=== PATIENT | female | born 1970 | race Caucasian/White ===

== ENCOUNTER 2020-01-03 07:58 | Emergency (ER) | payer BC, MEDICAID ==
[~2020-01-03] VITALS: Ht 162.6 cm; Wt 148.3 kg
[~2020-01-03 07:58] MED LIST: ALD50T PO; CETI-1 PO; CLIN-97 PO; ESCI20TA29 PO; EXEN10PE SQ; GABA-338 PO; HYDR1TAB PO; MELO7.5T12 PO; METF500T PO; METH4TAB3 PO; METH500T PO; MONT10TA21 PO; OMEG1CAP54 PO; RAMI5CAP65 PO; SIMV-42 PO; TRAM50TA2 PO
[2020-01-03 08:00] VITALS: BP 175/77
[2020-01-03] MEDS ORDERED: orphenadrine citrate 60mg/2ml inj. IM ONE (08:25)
[2020-01-03] MEDS ORDERED: triamcinolone acetonide 40mg/ml inj IM ONE (08:25)
[2020-01-03] MEDS ORDERED: METH4TAB81 PO (08:59)
[2020-01-03] MEDS ORDERED: CYCL-1 PO (08:59)
== END 2020-01-03 09:07 | disposition home or self-care (01) ==
LOC: ER 07:59
DX: M54.5 Low back pain (principal); E11.9 Type 2 diabetes mellitus without complications; Z79.2 Long term (current) use of antibiotics; Z79.899 Other long term (current) drug therapy
CPT/HCPCS: 96372; 99284; J2360; J3301

== ENCOUNTER 2021-05-26 21:59 | Emergency (ER) | payer BC ==
[~2021-05-26] VITALS: Ht 162.6 cm; Wt 137.7 kg
[~2021-05-26 21:59] MED LIST changes: +CYCL-1 PO; +METH4TAB81 PO
--- NOTE | 2021-05-26 23:00 | NUR ---
Noemi clement in ED - 05/27/21 at 0127 by LUCIUS Pt heard a "pop" on her R hip. Was weak for a while but since, pt cant walk.
[2021-05-27] MEDS ORDERED: ondansetron 4mg rapidly disintigrating tab PO ONE (00:20)
[2021-05-27] MEDS ORDERED: morphine 4 MG/ML inj SYRINge IM ONE (00:20)
[2021-05-27 01:24] VITALS: BP 163/93
--- NOTE | 2021-05-27 01:25 | NUR ---
Pt heard a "pop" on her R hip. Hip was weak already and was waiting for hip replacement sx, but since the event, pt cant walk.
[2021-05-27] MEDS ORDERED: morphine ER 15mg tablet PO ONE (03:15)
== END 2021-05-27 03:44 | disposition home or self-care (01) ==
LOC: ER 21:59
DX: M25.551 Pain in right hip (principal); G89.29 Other chronic pain; E11.9 Type 2 diabetes mellitus without complications; Z79.2 Long term (current) use of antibiotics; Z79.899 Other long term (current) drug therapy
CPT/HCPCS: 72192; 73502; 96372; 99284; J2270

== ENCOUNTER → 2021-08-18 | Emergency (ER) | payer BC ==
[~2021-08-18] VITALS: Ht 162.6 cm; Wt 159.0 kg
[2021-08-18 23:34] VITALS: BP 145/80
== END | disposition left against medical advice (07) ==
LOC: ER 23:03
DX: M25.561 Pain in right knee (principal); M25.559 Pain in unspecified hip; Z53.21 Procedure and treatment not carried out due to patient leaving prior to being seen by health care provider

== ENCOUNTER 2022-08-05 05:06 | Inpatient (IN) | payer MEDICAID ==
[2022-07-28 10:51] LABS: BASOPHILS % (AUTO) 0.9 % (0-1); EOSINOPHILS % (AUTO) 0.9 % (0-6); LYMPHOCYTES # (AUTO) 1.5 X10'3 (1.1-4.8); LYMPHOCYTES % (AUTO) 37.4 % (21-51); MEAN CORPUSCULAR HEMOGLOBIN 30.6 PG (27.0-31.0); MEAN CORPUSCULAR HGB CONC 33.9 g/dL (33.0-36.5); MEAN CORPUSCULAR VOLUME 90.4 FL (78-98); MONOCYTES # (AUTO) 0.4 X10'3 (0-0.9); MONOCYTES % (AUTO) 10.2 % (2-12); NEUTROPHILS % (AUTO) 50.6 % (42-75); PRE OP HEMATOCRIT 36.2 % (35.0-45.0); PRE OP HEMOGLOBIN 12.3 g/dL (12.0-16.0); PRE OP PLATELET COUNT 231 X10'3 (140-440); RED CELL DISTRIBUTION WIDTH 13.7 % (11.5-14.5)
[2022-07-28 11:12] LABS: ALBUMIN 3.4 G/DL (3.4-5.0); ALBUMIN/GLOBULIN RATIO 0.9 (1.1-1.5); ALKALINE PHOSPHATASE 53 IU/L (46-116); BLOOD UREA NITROGEN 19 MG/DL (7-18); BUN/CREATININE RATIO 30.2 (6.6-38.0); CALCIUM 8.8 MG/DL (8.5-10.1); CHLORIDE 105 MMOL/L (99-107); CREATININE 0.63 MG/DL (0.40-0.90); PRE OP ALT 23 U/L (30-65); PRE OP ANION GAP 5 (8-16); PRE OP AST 15 U/L (10-37); PRE OP BILIRUB, TOTAL 0.3 MG/DL (0.0-1.0); PRE OP GLUCOSE 96 MG/DL (70-104); PRE OP POTASSIUM 3.9 MMOL/L (3.4-5.1); PRE OP SODIUM 140 MMOL/L (135-145); TOTAL CARBON DIOXIDE 30.1 MMOL/L (24-32); eGFR > 90 ML/MIN
[2022-08-02 14:00] VITALS: BP 103/57
[~2022-08-05] VITALS: Ht 162.6 cm; Wt 117.7 kg
[2022-08-05] VITALS (19 sets, daily range): BP systolic 88–120; BP diastolic 45–65
[~2022-08-05 05:06] MED LIST changes: -ALD50T PO; +CALC-855 PO; -CETI-1 PO; -CLIN-97 PO; -CYCL-1 PO; -ESCI20TA29 PO; -EXEN10PE SQ; +HYDR-3964 PO; -HYDR1TAB PO; -MELO7.5T12 PO; -METF500T PO; -METH4TAB3 PO; -METH4TAB81 PO; -METH500T PO; -MONT10TA21 PO; +MULT-1085 PO; -OMEG1CAP54 PO; +RAMI2.5C54 PO; -RAMI5CAP65 PO; -SIMV-42 PO; +SITA100T15 PO; -TRAM50TA2 PO; +ringers solution, lacted 1,000 ML IV SCH
[2022-08-05] MEDS ORDERED: oxyCODONE SR 10mg (sust. release) tab -2 tabs (20mg) PO ONE (05:30)
[2022-08-05] MEDS ORDERED: celeCOXIB 100mg capsule PO ONE (05:30)
[2022-08-05] MEDS ORDERED: ceFAZolin inj. 2,000 MG in dextrose 5%-water 100 ML IV ONE (05:30)
[2022-08-05] MEDS ORDERED: tranexamic acid inj. 1,000 MG in normal saline IV soln 100ML IV ONE (05:30)
[2022-08-05] MEDS ORDERED: vancomycin 1,500 MG in NS 300ml IV soln IV ONE (05:30)
[2022-08-05] MEDS ORDERED: metoclopramide 5 mg/ml inj IV ONE (05:30)
[2022-08-05] MEDS ORDERED: famotidine 20mg tablet PO ONE (05:30)
[2022-08-05] MEDS ORDERED: acetaminophen 325mg tablet PO ONE (05:30)
[2022-08-05] MEDS ORDERED: gabapentin 300mg capsule PO ONE (05:30)
[2022-08-05] MEDS ORDERED: DEXTROSE 15 GM of carb/4 tabs (each vial/BOTTLE has 4 tablets) PO PRN ×2 (07:05)
[2022-08-05] MEDS ORDERED: MESSAGE TO PHARMACY PO ONE (07:05)
[2022-08-05] MEDS ORDERED: insulin Lispro (HumaLOG) vial - multi-dose SQ SCH (07:05)
[2022-08-05] MEDS ORDERED: glucagon, human recombinant 1mg kit SUBCUT PRN (07:05)
[2022-08-05] MEDS ORDERED: dextrose 50%-water 50ml dispensing syringe IV PRN ×2 (07:05)
[2022-08-05] MEDS ORDERED: HYDROcodone/acetaminophen 10/325mg tab PO PRN (07:05)
[2022-08-05] MEDS ORDERED: acetaminophen 325mg tablet PO PRN (07:05)
[2022-08-05] MEDS ORDERED: naloxone 0.4 mg/ml inj IV PRN (07:05)
[2022-08-05] MEDS ORDERED: diphenhydrAMINE 25mg capsule PO PRN ×2 (07:05)
[2022-08-05] MEDS ORDERED: ondansetron/PF 4mg/2ml inj IV PRN ×2 (07:05→10:15)
[2022-08-05] MEDS ORDERED: magnesium hydroxide 30ml (MOM) UD suspension PO PRN (07:05)
[2022-08-05] MEDS: potassium cl 20mEq in 1/2 NS 1,000 ML IV SCH ×2 (07:05→14:15)
[2022-08-05] MEDS ORDERED: bisacodyl 10mg suppository rectal RC PRN (07:05)
[2022-08-05] MEDS ORDERED: ascorbic acid 500mg tablet PO SCH (08:00)
[2022-08-05] MEDS ORDERED: gabapentin 300mg capsule PO SCH (08:00)
[2022-08-05] MEDS ORDERED: multivitamins, therapeutics tablet PO SCH (08:00)
[2022-08-05] MEDS ORDERED: aspirin 325mg tablet PO SCH (08:30)
[2022-08-05] MEDS ORDERED: ketorolac trometh. 30mg/ml inj. ONE (08:52)
[2022-08-05] MEDS ORDERED: ROPIVAcaine 0.5% (5mg/ml) 30ml vial ONE (08:53)
[2022-08-05] MEDS ORDERED: epiNEPHrine 1 mg/ml inj ONE (08:53)
[2022-08-05] MEDS ORDERED: cloNIDine hcl/PF 100mcg/ml inj ONE (08:53)
[2022-08-05] MEDS ORDERED: vancomycin 1,000mg inj ONE (08:53)
[2022-08-05] MEDS ORDERED: fentaNYL/PF 50MCG/1 ML 2ML syringe ONE (09:44)
--- NOTE | 2022-08-05 10:00 | NUR ---
CSM: PEDAL PULSES PRESENT AND MARKED. PATIENT DID WATCH THE VIDEO. MUPIROCIN CREAM FOR THIS PATIENT WAS NOT ORDERED. EDUCATED PATIENT ON THE USE OF THE INCENTIVE SPIROMETER AND ITS IMPORTANCE.
[2022-08-05] MEDS ORDERED: propofol inj 20 ML IV ONE ×2 (10:14)
[2022-08-05] MEDS ORDERED: midazolam 1 mg/ML 2ml injection ONE (10:14)
[2022-08-05] MEDS ORDERED: morphine 2 MG/ML inj. syringe IV PRN (10:15)
[2022-08-05] MEDS ORDERED: acetaminophen 1,000mg/100ml IV 100 ML IV PRN (10:15)
[2022-08-05] MEDS ORDERED: proCHLORperazine 10 MG/2 ml inj IV PRN (10:15)
[2022-08-05] MEDS ORDERED: ketorolac trometh. 30mg/ml inj. IV ONE (10:15)
[2022-08-05] MEDS ORDERED: morphine 4 MG/ML inj SYRINge IV PRN (10:15)
[2022-08-05] MEDS ORDERED: labetalol 20mg/4ml (5mg/ml) syringe IV PRN (10:15)
[2022-08-05] MEDS ORDERED: HYDROmorphone/PF 0.2 MG/ML SYRINGE IV PRN ×2 (10:15)
[2022-08-05] MEDS ORDERED: hydrALAZINE 20mg/ml inj. IV PRN (10:15)
[2022-08-05] MEDS ORDERED: ringers solution, lacted 1,000 ML IV SCH (10:15)
--- NOTE | 2022-08-05 11:25 | NUR ---
Received from OR via , accompanied by Anesthesiologist and report given by Anesthesiolgist. PATIENT A&OX4, DENIES PAIN, V/S WNL, NEUROVASCULAR CHECKS INTACT, T-11 SENSATION, SCD ON, IMMOBILIZER TO right LEG WITH GUANAKO DRESSING TO right HIP CDI W/ NO LEAKS DETECTED, PIV TO RUE.
--- NOTE | 2022-08-05 13:55 | NUR ---
PATIENT A&OX4, DENIES PAIN, V/S WNL, NEUROVASCULAR CHECKS INTACT, full SENSATIONs and movement now, SCD ON, IMMOBILIZER TO right LEG WITH GUANAKO DRESSING TO right HIP CDI W/ NO LEAKS DETECTED, 20g PIV TO RUE. patient taken to 358a with all belongings and hooked up to monitors in room and report given to rn who has taken over patient care.
[2022-08-05] MEDS ORDERED: tranexamic acid inj. 1,000 MG in normal saline 100ml IV soln 90 ML IV ONE (14:00)
[2022-08-05] MEDS: HYDROmorphone inj. 0.5 MG/0.5 ML DISP.SYRIN IV PRN (16:31)
[2022-08-05] MEDS: cefazolin/dext.iso 2gm/100ml 100 ML IV SCH (16:48)
--- NOTE | 2022-08-05 18:30 | NUR ---
Patient in room [facility] 358. I have received report from JOSE HASKINS and had the opportunity to ask questions and assume patient care. Addendum: 08/06/22 at 0643 by Nilda Hsu RN Amended: Links added.
[2022-08-05] MEDS: HYDROcodone/acetaminophen 10/325mg tab PO PRN (18:59)
[2022-08-05] MEDS: ascorbic acid 500mg tablet PO SCH (18:59)
--- NOTE | 2022-08-05 19:04 | NUR ---
marlys stubbs, dressing cd&I Monica in placekelsey for pain. Addendum: 08/05/22 at 1905 by Nilda Hsu RN Amended: Links added.
[2022-08-05] MEDS ORDERED: VANCOMYCIN 1,500MG inj. 1,500 MG in normal saline 500ml IV soln 300 ML IV ONE (21:00)
[2022-08-05] MEDS: HYDROmorphone 1 mg/ml syringe IV PRN (21:19)
[2022-08-05] MEDS: gabapentin 300mg capsule PO SCH (21:20)
[2022-08-05] MEDS: sennosides 8.6mg tablet PO SCH (21:20)
[2022-08-05] MEDS: insulin glargine (Lantus) pen - multi-dose SQ SCH (21:40)
[2022-08-06] VITALS: BP 92/51
[2022-08-06] MEDS: cefazolin/dext.iso 2gm/100ml 100 ML IV SCH (00:48)
[2022-08-06] MEDS: potassium cl 20mEq in 1/2 NS 1,000 ML IV SCH ×4 (00:49→23:05)
[2022-08-06] MEDS: HYDROmorphone 1 mg/ml syringe IV PRN (01:29)
[2022-08-06] MEDS: HYDROcodone/acetaminophen 10/325mg tab PO PRN ×4 (03:55→20:38)
[2022-08-06 04:00] VITALS: BP 99/48
[2022-08-06 06:00] VITALS: BP 103/51
[2022-08-06 06:57] LABS: BASOPHILS % (AUTO) 0.5 % (0-1); EOSINOPHILS % (AUTO) 0.6 % (0-6); HEMATOCRIT 32.9 % (35.0-45.0); HEMOGLOBIN 11.3 g/dl (12.0-16.0); LYMPHOCYTES # (AUTO) 1.7 X10'3 (1.1-4.8); LYMPHOCYTES % (AUTO) 30.7 % (21-51); MEAN CORPUSCULAR HEMOGLOBIN 31.2 PG (27.0-31.0); MEAN CORPUSCULAR HGB CONC 34.3 g/dL (33.0-36.5); MEAN CORPUSCULAR VOLUME 90.7 FL (78-98); MEAN PLATELET VOLUME 8.3 FL (7.4-10.4); MONOCYTES # (AUTO) 0.6 X10'3 (0-0.9); MONOCYTES % (AUTO) 10.3 % (2-12); NEUTROPHILS # (AUTO) 3.3 X10'3 (1.8-7.7); NEUTROPHILS % (AUTO) 57.9 % (42-75); PLATELET COUNT 187 X10'3 (140-440); RED BLOOD COUNT 3.63 X10'6 (4.20-5.60); RED CELL DISTRIBUTION WIDTH 13.5 % (11.5-14.5); WHITE BLOOD COUNT 5.7 X10'3 (4.5-11.0)
[2022-08-06 07:19] LABS: ANION GAP 8 (8-16); CHLORIDE 108 MMOL/L (99-107); SODIUM 140 MMOL/L (135-145); TOTAL CARBON DIOXIDE 24.1 MMOL/L (24-32)
[2022-08-06] MEDS: multivitamins, therapeutics tablet PO SCH (08:05)
[2022-08-06] MEDS: aspirin 325mg tablet PO SCH (08:05)
[2022-08-06] MEDS: ascorbic acid 500mg tablet PO SCH ×2 (08:06→20:37)
[2022-08-06] MEDS: gabapentin 300mg capsule PO SCH ×3 (08:07→20:37)
[2022-08-06 11:00] VITALS: BP 110/56
--- NOTE | 2022-08-06 11:44 | NUR ---
DM consult: Per EMR pt with T2DM, well controlled with A1c 5.3%. DM education not warranted at this time. Recommend liberalizing to regular diet. Noted pt with discharge orders per EMR. Will continue to follow. Addendum: 08/06/22 at [address] Amended: Links added.
[2022-08-06] MEDS ORDERED: albuterol 2.5 MG/3 ML nebule NEB PRN (12:05)
[2022-08-06] MEDS: HYDROmorphone inj. 0.5 MG/0.5 ML DISP.SYRIN IV PRN (12:15)
[2022-08-06] MEDS ORDERED: lisinopril 10 MG tablet PO SCH (16:25)
[2022-08-06 18:00] VITALS: BP 124/66
--- NOTE | 2022-08-06 18:20 | NUR ---
Patient in room [facility] 358. I have received report from Kendra GARCIA and had the opportunity to ask questions and assume patient care.
[2022-08-06] MEDS: celeCOXIB 100mg capsule PO SCH (20:37)
[2022-08-06] MEDS: sennosides 8.6mg tablet PO SCH (20:37)
[2022-08-06] MEDS: insulin glargine (Lantus) pen - multi-dose SQ SCH (21:00)
[2022-08-06 22:00] VITALS: BP 98/50
[2022-08-07] MEDS: HYDROcodone/acetaminophen 10/325mg tab PO PRN ×3 (01:34→09:41)
--- NOTE | 2022-08-07 04:12 | NUR ---
MUSIC LIBRARIAN documentation: I have reviewed and agree with all interventions, assessments performed and documented by Kenya NAM.
[2022-08-07 06:00] VITALS: BP 112/57
--- NOTE | 2022-08-07 06:27 | NUR ---
Problems reprioritized. Patient report given, questions answered & plan of care reviewed with Juanita GARCIA and Kalli NAM.
[2022-08-07 06:32] LABS: BASOPHILS % (AUTO) 0.5 % (0-1); EOSINOPHILS % (AUTO) 0.8 % (0-6); HEMATOCRIT 30.4 % (35.0-45.0); HEMOGLOBIN 10.5 g/dl (12.0-16.0); LYMPHOCYTES # (AUTO) 1.7 X10'3 (1.1-4.8); LYMPHOCYTES % (AUTO) 29.3 % (21-51); MEAN CORPUSCULAR HGB CONC 34.8 g/dL (33.0-36.5); MEAN CORPUSCULAR VOLUME 89.3 FL (78-98); MEAN PLATELET VOLUME 7.9 FL (7.4-10.4); MONOCYTES # (AUTO) 0.7 X10'3 (0-0.9); MONOCYTES % (AUTO) 12.5 % (2-12); NEUTROPHILS # (AUTO) 3.3 X10'3 (1.8-7.7); NEUTROPHILS % (AUTO) 56.9 % (42-75); PLATELET COUNT 191 X10'3 (140-440); RED CELL DISTRIBUTION WIDTH 13.4 % (11.5-14.5); WHITE BLOOD COUNT 5.8 X10'3 (4.5-11.0)
--- NOTE | 2022-08-07 06:42 | NUR ---
Patient in room [facility] 358. I have received report from Beba and had the opportunity to ask questions and assume patient care.
[2022-08-07] MEDS: celeCOXIB 100mg capsule PO SCH (08:06)
[2022-08-07] MEDS: ascorbic acid 500mg tablet PO SCH (08:07)
[2022-08-07] MEDS: aspirin 325mg tablet PO SCH (08:07)
[2022-08-07] MEDS: gabapentin 300mg capsule PO SCH (08:07)
[2022-08-07] MEDS: multivitamins, therapeutics tablet PO SCH (08:07)
[2022-08-07 12:00] VITALS: BP 90/56
--- NOTE | 2022-08-07 12:15 | NUR ---
Patient discharged today into the care of spouse. IV D/C'd and discharge instructions were discussed with patient. Patient stated that Dr. Villafana sent a tramadol rx to her pharmacy but was unable to pick it up due to pharmacy rejecting it. I called pharmacy and spoke with pharmacist Maria Elena and she was able to push the rx through. Patient is aware of picking up rx from pharmacy. Patient dressed herself and gathered all belongings. Patient was stable and alert/orientated when wheeled down stairs. Patient helped into privative vehicle.
--- NOTE | 2022-08-07 12:24 | NUR ---
SHANK CUTTER documentation: I have reviewed and agree with all interventions, assessments performed and documented by CYRIL Mahan.
== END 2022-08-07 12:28 | disposition home or self-care (01) | DRG 324 ==
LOC: PAS IN 06:23 → SUR 3N 14:00
PROVIDERS: ADMIT Orthopaedic Surgery; ATTEND Orthopaedic Surgery
PROC: 0SR906Z Replacement of Right Hip Joint with Oxidized Zirconium on Polyethylene Synthetic Substitute, Open Approach (ICD-10-PCS; principal; 2022-08-05 09:38)
DX: M16.11 Unilateral primary osteoarthritis, right hip (principal); Z79.82 Long term (current) use of aspirin; Z79.84 Long term (current) use of oral hypoglycemic drugs
CPT/HCPCS: 36415; 72170; 80051; 80053; 82948; 83036; 85025; 86885; 86900; 86901; 87081; 94760; 97110; 97116; 97162; 97530; A4615; A4618; A7000; C1776; G0378; J0171; J0690; J0735; J1170; J1815; J1885; J2250; J2704; J2765; J2795; J3010; J3370; J3480; J3490; J7040; J7060; J7120

== ENCOUNTER 2023-01-26 09:51 | Day surgery (SDC) | payer MEDICAID ==
[2023-01-26] VITALS (8 sets, daily range): BP systolic 119–159; BP diastolic 63–99
[~2023-01-26] VITALS: Ht 162.6 cm; Wt 122.5 kg
[~2023-01-26 09:51] MED LIST changes: -CALC-855 PO; -GABA-338 PO; +GABA600T13 PO; +METF-1203 PO; -MULT-1085 PO; -RAMI2.5C54 PO; -SITA100T15 PO; +ceFAZolin inj. 3,000 MG in normal saline 100ml IV soln 100 ML IV ONE; +famotidine 20mg tablet PO ONE
[2023-01-26 12:19] LABS: ALANINE AMINOTRANSFERASE 22 U/L (12-78); ALBUMIN 3.5 G/DL (3.4-5.0); ALBUMIN/GLOBULIN RATIO 0.9 (1.1-1.5); ALKALINE PHOSPHATASE 47 IU/L (46-116); ANION GAP 9 (8-16); ASPARTATE AMINO TRANSFERASE 27 U/L (10-37); BILIRUBIN,TOTAL 0.4 MG/DL (0.1-1.0); BLOOD UREA NITROGEN 17 MG/DL (7-18); BUN/CREATININE RATIO 27.9 (10.0-20.0); CALCIUM 8.9 MG/DL (8.5-10.1); CHLORIDE 105 MMOL/L (99-107); CREATININE 0.61 MG/DL (0.40-0.90); GLUCOSE 98 MG/DL (70-104); POTASSIUM 4.3 MMOL/L (3.5-5.1); SODIUM 140 MMOL/L (135-145); TOTAL CARBON DIOXIDE 25.9 MMOL/L (24-32); TOTAL PROTEIN 7.3 G/DL (6.4-8.2); eGFR > 90 ML/MIN
[2023-01-26 12:21] LABS: BASOPHILS % (AUTO) 1.1 % (0-1); EOSINOPHILS # (AUTO) 0.1 X10'3 (0-0.9); EOSINOPHILS % (AUTO) 1.4 % (0-6); HEMATOCRIT 33.7 % (35.0-45.0); HEMOGLOBIN 11.2 g/dl (12.0-16.0); LYMPHOCYTES # (AUTO) 1.7 X10'3 (1.1-4.8); LYMPHOCYTES % (AUTO) 37.7 % (21-51); MEAN CORPUSCULAR HEMOGLOBIN 27.8 PG (27.0-31.0); MEAN CORPUSCULAR HGB CONC 33.2 g/dL (33.0-36.5); MEAN PLATELET VOLUME 7.9 FL (7.4-10.4); MONOCYTES # (AUTO) 0.4 X10'3 (0-0.9); MONOCYTES % (AUTO) 9.9 % (2-12); NEUTROPHILS # (AUTO) 2.2 X10'3 (1.8-7.7); NEUTROPHILS % (AUTO) 49.9 % (42-75); PLATELET COUNT 248 X10'3 (140-440); RED BLOOD COUNT 4.02 X10'6 (4.20-5.60); RED CELL DISTRIBUTION WIDTH 12.6 % (11.5-14.5); WHITE BLOOD COUNT 4.4 X10'3 (4.5-11.0)
[2023-01-26] MEDS ORDERED: BUPIVAcaine/PF 2.5 mg/ml (0.25%) 30ml vial ONE (13:09)
[2023-01-26] MEDS ORDERED: bacitracin 15gm ointment TP ONE (13:09)
[2023-01-26] MEDS ORDERED: midazolam 1 mg/ML 2ml injection ONE (13:28)
[2023-01-26] MEDS ORDERED: fentaNYL/PF 50MCG/1 ML 2ML syringe ONE (13:28)
[2023-01-26] MEDS ORDERED: propofol inj 20 ML IV ONE (13:55)
--- NOTE | 2023-01-26 13:58 | NUR ---
Received from OR via [facility], accompanied by Anesthesiologist and report given by ABBI Anesthesiologist. PATIENT WAKING UP, DENIES PAIN, V/S WNL, SCD ON, 20G TO LEFT AC, RIGHT FOOT JANELL WRAP DRESSING C/D/I. Addendum: 01/26/23 at 1459 by Ronnie Burciaga RN Amended: Links added.
[2023-01-26] MEDS ORDERED: morphine 4 MG/ML inj SYRINge IV PRN (14:20)
[2023-01-26] MEDS ORDERED: morphine 2 MG/ML inj. syringe IV PRN (14:20)
[2023-01-26] MEDS ORDERED: meperidine/PF 25mg/ml syringe IV PRN ×3 (14:20)
[2023-01-26] MEDS ORDERED: proCHLORperazine 10 MG/2 ml inj IV PRN (14:20)
[2023-01-26] MEDS ORDERED: ringers solution, lacted 1,000 ML IV SCH (14:20)
[2023-01-26] MEDS ORDERED: ondansetron/PF 4mg/2ml inj IV PRN (14:20)
--- NOTE | 2023-01-26 15:08 | NUR ---
ALL DISCHARGE CRITERIA HAS BEEN MET. VSS, PAIN AT A TOLERABLE LEVEL, ABLE TO SAFELY AMBULATE WITH SURGICAL BOOTS AND TRANSFER SELF. IV TAKEN OUT WITHOUT ANY COMPLICATIONS. ALL DISCHARGE INSTRUCTIONS COVERED WITH PATIENT AND ALL QUESTIONS ANSWERED. PATIENT TAKEN OUT VIA WHEELCHAIR WITH ALL BELONGINGS TO PERSONAL VEHICLE WHERE FAMILY DROVE PATIENT HOME. Addendum: 01/26/23 at 1516 by Ronnie Burciaga RN Amended: Links added.
--- NOTE | 2023-01-26 15:08 | NUR ---
ALL DISCHARGE CRITERIA HAS BEEN MET. VSS, PAIN AT A TOLERABLE LEVEL, ABLE TO SAFELY AMBULATE AND TRANSFER SELF. IV TAKEN OUT WITHOUT ANY COMPLICATIONS. ALL DISCHARGE INSTRUCTIONS COVERED WITH PATIENT AND ALL QUESTIONS ANSWERED. PATIENT TAKEN OUT VIA WHEELCHAIR WITH ALL BELONGINGS TO PERSONAL VEHICLE WHERE FAMILY DROVE PATIENT HOME.
== END 2023-01-26 15:08 | disposition home or self-care (01) ==
LOC: PRE-OP 09:51
PROVIDERS: ATTEND Podiatrist Foot & Ankle Surgery
DX: M79.5 Residual foreign body in soft tissue (principal); M16.0 Bilateral primary osteoarthritis of hip; G47.30 Sleep apnea, unspecified; J45.909 Unspecified asthma, uncomplicated; Z98.890 Other specified postprocedural states; E11.9 Type 2 diabetes mellitus without complications; Z98.51 Tubal ligation status; Z79.899 Other long term (current) drug therapy; W45.8XXA Other foreign body or object entering through skin, initial encounter; Y93.89 Activity, other specified; Y92.89 Other specified places as the place of occurrence of the external cause; Y99.8 Other external cause status; Z96.641 Presence of right artificial hip joint; Z98.84 Bariatric surgery status
CPT/HCPCS: 28192; 36415; 80053; 82948; 85025; A6222; J0690; J2250; J2704; J3010; J3490; J7030; J7120; Z7506; Z7512; A4618; A6449; A7000

== ENCOUNTER 2023-03-02 06:28 | Inpatient (IN) | payer MEDICAID ==
[2023-02-23 14:50] LABS: BASOPHILS # (AUTO) 0.1 X10'3 (0-0.2); EOSINOPHILS # (AUTO) 0.1 X10'3 (0-0.9); EOSINOPHILS % (AUTO) 2.3 % (0-6); LYMPHOCYTES % (AUTO) 37.3 % (21-51); MEAN CORPUSCULAR HEMOGLOBIN 27.3 PG (27.0-31.0); MEAN CORPUSCULAR HGB CONC 33.1 g/dL (33.0-36.5); MEAN CORPUSCULAR VOLUME 82.3 FL (78-98); MEAN PLATELET VOLUME 7.9 FL (7.4-10.4); MONOCYTES # (AUTO) 0.5 X10'3 (0-0.9); MONOCYTES % (AUTO) 9.9 % (2-12); NEUTROPHILS # (AUTO) 2.7 X10'3 (1.8-7.7); NEUTROPHILS % (AUTO) 49.5 % (42-75); PRE OP HEMATOCRIT 35.4 % (35.0-45.0); PRE OP HEMOGLOBIN 11.7 g/dL (12.0-16.0); PRE OP PLATELET COUNT 257 X10'3 (140-440); RED CELL DISTRIBUTION WIDTH 13.3 % (11.5-14.5)
[2023-02-23 15:08] LABS: ALBUMIN 3.8 G/DL (3.4-5.0); ALKALINE PHOSPHATASE 59 IU/L (46-116); BLOOD UREA NITROGEN 14 MG/DL (7-18); BUN/CREATININE RATIO 18.2 (10.0-20.0); CALCIUM 8.8 MG/DL (8.5-10.1); CHLORIDE 104 MMOL/L (99-107); CREATININE 0.77 MG/DL (0.40-0.90); PRE OP ALT 29 U/L (30-65); PRE OP ANION GAP 9 (8-16); PRE OP AST 24 U/L (10-37); PRE OP BILIRUB, TOTAL 0.2 MG/DL (0.0-1.0); PRE OP GLUCOSE 114 MG/DL (70-104); PRE OP POTASSIUM 4.1 MMOL/L (3.4-5.1); PRE OP SODIUM 141 MMOL/L (135-145); TOTAL CARBON DIOXIDE 28.3 MMOL/L (24-32); TOTAL PROTEIN 7.6 G/DL (6.4-8.2); eGFR 79 ML/MIN
[2023-03-02] VITALS (27 sets, daily range): BP systolic 90–148; BP diastolic 43–107
[~2023-03-02] VITALS: Ht 162.6 cm; Wt 125.6 kg
[~2023-03-02 06:28] MED LIST changes: +ASCO500C17 PO; +CALC-995 PO; +MULT-1085 PO; +SEMA0.25 SQ; +acetaminophen 325mg tablet PO ONE; +celeCOXIB 100mg capsule PO ONE; +gabapentin 300mg capsule PO ONE; +metoclopramide 5 mg/ml inj IV ONE; +oxyCODONE SR 10mg (sust. release) tab -2 tabs (20mg) PO ONE; +tranexamic acid inj. 1,000 MG in normal saline IV soln 100ML IV ONE; +vancomycin 1,500 MG in NS 300ml IV soln IV ONE
[2023-03-02] MEDS ORDERED: HYDROmorphone inj. 0.5 MG/0.5 ML DISP.SYRIN IV PRN (06:45)
[2023-03-02] MEDS ORDERED: bisacodyl 10mg suppository rectal RC PRN (06:45)
[2023-03-02] MEDS ORDERED: dextrose 50%-water 50ml dispensing syringe IV PRN ×2 (06:45)
[2023-03-02] MEDS ORDERED: oxyCODONE IR 5mg (immed. release) tablet PO PRN (06:45)
[2023-03-02] MEDS ORDERED: glucagon, human recombinant 1mg kit SUBCUT PRN (06:45)
[2023-03-02] MEDS ORDERED: acetaminophen 325mg tablet PO PRN (06:45)
[2023-03-02] MEDS ORDERED: naloxone 0.4 mg/ml inj IV PRN (06:45)
[2023-03-02] MEDS ORDERED: ondansetron/PF 4mg/2ml inj IV PRN ×2 (06:45→10:05)
[2023-03-02] MEDS ORDERED: DEXTROSE 15 GM of carb/4 tabs (each vial/BOTTLE has 4 tablets) PO PRN ×2 (06:45)
[2023-03-02] MEDS ORDERED: MESSAGE TO PHARMACY PO ONE (06:45)
[2023-03-02] MEDS ORDERED: diphenhydrAMINE 25mg capsule PO PRN ×2 (06:45)
[2023-03-02] MEDS ORDERED: insulin Lispro (HumaLOG) vial - multi-dose SQ SCH (06:45)
[2023-03-02] MEDS ORDERED: HYDROmorphone 1 mg/ml syringe IV PRN (06:45)
[2023-03-02] MEDS ORDERED: magnesium hydroxide 30ml (MOM) UD suspension PO PRN (06:45)
[2023-03-02] MEDS ORDERED: cefazolin 2gm/D5W 100mL 100 ML IV SCH (08:00)
--- NOTE | 2023-03-02 08:00 | NUR ---
PEDAL PULSES MARKED CSM INTACT PATIENT HAS WATCHED VIDEO, NO OINTMENT ORDERED
[2023-03-02] MEDS ORDERED: fentaNYL/PF 50MCG/1 ML 2ML syringe ONE (09:55)
[2023-03-02] MEDS ORDERED: MIDAZolam 1 MG/ML 5ML VIAL ONE (09:56)
[2023-03-02] MEDS ORDERED: morphine 2 MG/ML inj. syringe IV PRN (10:05)
[2023-03-02] MEDS ORDERED: ringers solution, lacted 1,000 ML IV SCH (10:05)
[2023-03-02] MEDS ORDERED: morphine 4 MG/ML inj SYRINge IV PRN (10:05)
[2023-03-02] MEDS ORDERED: meperidine/PF 25mg/ml syringe IV PRN ×3 (10:05)
[2023-03-02] MEDS ORDERED: proCHLORperazine 10 MG/2 ml inj IV PRN (10:05)
[2023-03-02] MEDS ORDERED: epiNEPHrine 1 mg/ml inj ONE (10:14)
[2023-03-02] MEDS ORDERED: vancomycin 1,000mg inj ONE (10:14)
[2023-03-02] MEDS ORDERED: ketorolac trometh. 30mg/ml inj. ONE (10:14)
[2023-03-02] MEDS ORDERED: cloNIDine hcl/PF 100mcg/ml inj ONE (10:14)
[2023-03-02] MEDS ORDERED: ROPIVAcaine 0.5% (5mg/ml) 30ml vial ONE (10:15)
[2023-03-02] MEDS ORDERED: diphenhydrAMINE 50 mg/ml inj ONE (11:09)
[2023-03-02] MEDS ORDERED: LIDOcaine 1%/PF 5ML 10 MG/ML VIAL ONE (11:09)
[2023-03-02] MEDS ORDERED: propofol inj 20 ML IV ONE (11:09)
[2023-03-02] MEDS ORDERED: epiNEPHrine 1 MG/ML 1 ml ampule **BRONCH ONLY SQ ONE (11:11)
[2023-03-02] MEDS ORDERED: cloNIDine hcl/PF 100mcg/ml inj EP ONE (11:11)
[2023-03-02] MEDS ORDERED: ketorolac trometh. 30mg/ml inj. IV ONE (11:11)
[2023-03-02] MEDS ORDERED: ROPIVAcaine 0.5% (5mg/ml) 30ml vial IJ ONE (11:11)
--- NOTE | 2023-03-02 11:53 | NUR ---
Received from OR via HOSPITAL BED TO RR, accompanied by Anesthesiologist and report given by Anesthesiolgist. PT PRESENTS WITH 20G RIGHT AC, LEFT KNEE BRACE WITH GUANAKO DRESSSING AND POWDER PACK, SPO2 94% RA, ;R RUNNING AT 100MLS/HR, VSS. Addendum: 03/02/23 at 1257 by Jeanie Gomez RN, RN Amended: Links added.
[2023-03-02 12:23] LABS: ISTAT ANION GAP 10 (8-12); ISTAT BUN 15 mg/dL (7-18); ISTAT CL 101 mmol/L (99-107); ISTAT CREATININE 0.6 mg/dL (0.6-1.1); ISTAT GLUCOSE 98 mg/dL (70-104); ISTAT HGB 10.5 g/dl (12.0-16.0); ISTAT Hct 31 %PCV (35-45); ISTAT IONIZED CALCIUM 1.23 mmol/L (1.03-1.32); ISTAT NA 140 mmol/L (135-145); ISTAT TOTAL CO2 29 mmol/L (24-32); ISTAT eGFR > 90 ML/MIN
[2023-03-02] MEDS ORDERED: ceFAZolin/D5W- 1GM premix 50 ML IV SCH (14:00)
[2023-03-02] MEDS ORDERED: tranexamic acid inj. 1,000 MG in normal saline 100ml IV soln 90 ML IV ONE (14:00)
--- NOTE | 2023-03-02 14:13 | NUR ---
Report called to receiving nurse SHAHIDA GARCIA. Transferred via [facility] BED TO ROOM 4009C. BED IN LOW LOCKED POSITION WITH CALL LIGHT IN REACH. Belongings TAAKEN TO THE ROOM BY SISTER. Special Issues communicated to receiving nurse. Addendum: 03/02/23 at 1421 by Jeanie Gomez RN RN Amended: Links added.
[2023-03-02] MEDS: acetaminophen 325mg tablet PO SCH ×2 (15:18→20:37)
[2023-03-02] MEDS: oxyCODONE IR 5mg (immed. release) tablet PO PRN ×2 (15:18→20:36)
--- NOTE | 2023-03-02 17:02 | NUR ---
Ancef due at 1600. Paged Pharmacy and called asking for the medication. Medication still not available on the floor. Pharmacy states they do not have enough staff to bring up the medication.
[2023-03-02] MEDS: potassium cl 20mEq in 1/2 NS 1,000 ML IV SCH ×2 (17:34→20:39)
[2023-03-02] MEDS: ceFAZolin inj. 3,000 MG in normal saline 100ml IV soln 100 ML IV SCH (17:35)
--- NOTE | 2023-03-02 18:38 | NUR ---
Problems reprioritized. Patient report given, questions answered & plan of care reviewed with JOSE Bearden.
--- NOTE | 2023-03-02 19:04 | NUR ---
Patient in room [facility]TH[facility] 4009. I have received report from JOSE Gaston and had the opportunity to ask questions and assume patient care.
[2023-03-02] MEDS ORDERED: vancomycin inj 1,750 MG in normal saline 500ml IV soln 350 ML IV ONE (20:00)
[2023-03-02] MEDS: gabapentin 400mg capsule PO SCH (20:34)
[2023-03-02] MEDS ORDERED: insulin glargine (Lantus) pen - multi-dose SQ SCH (21:00)
[2023-03-02] MEDS ORDERED: sennosides 8.6mg tablet PO SCH (21:00)
[2023-03-03] VITALS: BP 116/61
--- NOTE | 2023-03-03 | NUR ---
Sent Page to pharmacy "In need of Ancef for Pt. Non located in the omni, nor Pt specific. Thank you"
[2023-03-03] MEDS: ceFAZolin inj. 3,000 MG in normal saline 100ml IV soln 100 ML IV SCH (00:28)
[2023-03-03 02:00] VITALS: BP 120/66
[2023-03-03] MEDS: acetaminophen 325mg tablet PO SCH ×2 (02:24→07:17)
[2023-03-03] MEDS: oxyCODONE IR 5mg (immed. release) tablet PO PRN ×3 (02:45→12:16)
--- NOTE | 2023-03-03 04:35 | NUR ---
CYRIL documentation: I have reviewed and agree with all interventions, assessments performed and documented by CYRIL Bearden. pulses intact, dressing CDI. knee immobilizer on, powder packs changed frequently.
[2023-03-03] MEDS: potassium cl 20mEq in 1/2 NS 1,000 ML IV SCH (05:43)
[2023-03-03 06:00] VITALS: BP 94/53
--- NOTE | 2023-03-03 06:08 | NUR ---
Problems reprioritized. Patient report given, questions answered & plan of care reviewed with JOSE Gaston.
--- NOTE | 2023-03-03 06:10 | NUR ---
Patient in room ORTHO 4009. I have received report from CYRIL Bearden and had the opportunity to ask questions and assume patient care.
[2023-03-03] MEDS: gabapentin 400mg capsule PO SCH (07:16)
[2023-03-03 07:20] LABS: BASOPHILS % (AUTO) 0.8 % (0-1); EOSINOPHILS # (AUTO) 0.1 X10'3 (0-0.9); HEMATOCRIT 27.9 % (35.0-45.0); HEMOGLOBIN 9.2 g/dl (12.0-16.0); LYMPHOCYTES # (AUTO) 1.2 X10'3 (1.1-4.8); LYMPHOCYTES % (AUTO) 30.7 % (21-51); MEAN CORPUSCULAR HEMOGLOBIN 27.2 PG (27.0-31.0); MEAN CORPUSCULAR VOLUME 82.4 FL (78-98); MEAN PLATELET VOLUME 8.2 FL (7.4-10.4); MONOCYTES # (AUTO) 0.4 X10'3 (0-0.9); MONOCYTES % (AUTO) 10.4 % (2-12); NEUTROPHILS # (AUTO) 2.3 X10'3 (1.8-7.7); NEUTROPHILS % (AUTO) 56.1 % (42-75); PLATELET COUNT 181 X10'3 (140-440); RED BLOOD COUNT 3.39 X10'6 (4.20-5.60); RED CELL DISTRIBUTION WIDTH 13.7 % (11.5-14.5)
[2023-03-03 07:32] LABS: ANION GAP 6 (8-16); CHLORIDE 105 MMOL/L (99-107); POTASSIUM 4.4 MMOL/L (3.5-5.1); SODIUM 139 MMOL/L (135-145); TOTAL CARBON DIOXIDE 28.3 MMOL/L (24-32)
[2023-03-03] MEDS ORDERED: cefazolin 2gm/D5W 100mL 100 ML IV SCH (08:00)
[2023-03-03] MEDS ORDERED: multivitamins, therapeutics tablet PO SCH (08:00)
[2023-03-03] MEDS ORDERED: ascorbic acid 500mg tablet PO SCH (08:00)
[2023-03-03] MEDS ORDERED: aspirin 325mg tablet PO SCH (08:30)
[2023-03-03 10:00] VITALS: BP 103/52
--- NOTE | 2023-03-03 11:00 | NUR ---
Per EMR pt s/p left [facility], discharging at this time. Written protein education with ONS coupons and RD contact information mailed to patient's home address found in EMR. Will remain available. Addendum: 03/03/23 at [address] Amended: Links added.
--- NOTE | 2023-03-03 13:34 | NUR ---
Patient was discharged at 1230 with instructions verbalizing understanding of instructions, in wheelchair accompanied by nursing staff and sister going home via private vehicle. All lines and tubes including PIV with cannula intact have been removed. Education has been provided at beside (discharge and diabetic) and all questions have been answered. Patient already has a follow up appointment with Dr. Villafana. Patient is stable and appropriate for discharge.
[2023-03-03] MEDS ORDERED: celeCOXIB 100mg capsule PO SCH (20:00)
== END 2023-03-03 12:30 | disposition home or self-care (01) | DRG 324 ==
LOC: PAS 06:28 → ORTHO 4S 06:45 → EDSTATUS 07:30
PROVIDERS: ADMIT Orthopaedic Surgery; ATTEND Orthopaedic Surgery
PROC: 0SRB06Z Replacement of Left Hip Joint with Oxidized Zirconium on Polyethylene Synthetic Substitute, Open Approach (ICD-10-PCS; principal; 2023-03-02 10:08)
DX: M16.12 Unilateral primary osteoarthritis, left hip (principal); Z79.82 Long term (current) use of aspirin
CPT/HCPCS: 36415; 71045; 72170; 80047; 80051; 80053; 82948; 83036; 85025; 86885; 86900; 86901; 87081; 97116; 97161; 97530; A7000; C1776; G0378; J0171; J0690; J0735; J1170; J1200; J1815; J1885; J2250; J2704; J2765; J2795; J3010; J3370; J3480; J3490; J7040; J7120

== ENCOUNTER 2023-03-18 17:01 | Emergency (ER) | payer MEDICAID ==
[~2023-03-18] VITALS: Ht 162.6 cm; Wt 125.9 kg
[~2023-03-18 17:01] MED LIST changes: -acetaminophen 325mg tablet PO ONE; -ceFAZolin inj. 3,000 MG in normal saline 100ml IV soln 100 ML IV ONE; -celeCOXIB 100mg capsule PO ONE; -famotidine 20mg tablet PO ONE; -gabapentin 300mg capsule PO ONE; -metoclopramide 5 mg/ml inj IV ONE; -oxyCODONE SR 10mg (sust. release) tab -2 tabs (20mg) PO ONE; -ringers solution, lacted 1,000 ML IV SCH; -tranexamic acid inj. 1,000 MG in normal saline IV soln 100ML IV ONE; -vancomycin 1,500 MG in NS 300ml IV soln IV ONE
[2023-03-18 17:16] VITALS: BP 143/90
[2023-03-18] MEDS ORDERED: morphine 4 MG/ML inj SYRINge IV ONE (19:05)
[2023-03-18 19:21] LABS: BASOPHILS # (AUTO) 0.1 X10'3 (0-0.2); BASOPHILS % (AUTO) 1.1 % (0-1); EOSINOPHILS # (AUTO) 0.2 X10'3 (0-0.9); EOSINOPHILS % (AUTO) 2.3 % (0-6); HEMATOCRIT 33.9 % (35.0-45.0); HEMOGLOBIN 10.9 g/dl (12.0-16.0); LYMPHOCYTES # (AUTO) 2.1 X10'3 (1.1-4.8); MEAN CORPUSCULAR HGB CONC 32.1 g/dL (33.0-36.5); MEAN PLATELET VOLUME 7.9 FL (7.4-10.4); MONOCYTES # (AUTO) 0.6 X10'3 (0-0.9); MONOCYTES % (AUTO) 8.1 % (2-12); NEUTROPHILS # (AUTO) 4.4 X10'3 (1.8-7.7); NEUTROPHILS % (AUTO) 59.5 % (42-75); PLATELET COUNT 474 X10'3 (140-440); RED BLOOD COUNT 4.18 X10'6 (4.20-5.60); RED CELL DISTRIBUTION WIDTH 14.3 % (11.5-14.5); WHITE BLOOD COUNT 7.4 X10'3 (4.5-11.0)
[2023-03-18 19:36] LABS: ALANINE AMINOTRANSFERASE 22 U/L (12-78); ALBUMIN 4.2 G/DL (3.4-5.0); ALBUMIN/GLOBULIN RATIO 1.1 (1.1-1.5); ALKALINE PHOSPHATASE 78 IU/L (46-116); ANION GAP 8 (8-16); ASPARTATE AMINO TRANSFERASE 22 U/L (10-37); BILIRUBIN,TOTAL 0.3 MG/DL (0.1-1.0); BLOOD UREA NITROGEN 26 MG/DL (7-18); CALCIUM 9.5 MG/DL (8.5-10.1); CHLORIDE 102 MMOL/L (99-107); CREATININE 0.84 MG/DL (0.40-0.90); GLUCOSE 110 MG/DL (70-104); POTASSIUM 4.3 MMOL/L (3.5-5.1); SODIUM 137 MMOL/L (135-145); TOTAL CARBON DIOXIDE 27.2 MMOL/L (24-32); TOTAL PROTEIN 8.1 G/DL (6.4-8.2); eGFR 71 ML/MIN
[2023-03-18] MEDS ORDERED: iohexol 300mg/ml 100ml inj. ONE (20:19)
== END 2023-03-18 22:26 | disposition home or self-care (01) ==
LOC: ER 17:02
DX: L76.32 Postprocedural hematoma of skin and subcutaneous tissue following other procedure (principal); M25.552 Pain in left hip; E11.9 Type 2 diabetes mellitus without complications; G89.29 Other chronic pain; Z79.899 Other long term (current) drug therapy
CPT/HCPCS: 36415; 73502; 73701; 80053; 84145; 85025; 96374; 99285; J2270; J3490; Q9967

== ENCOUNTER 2024-06-13 07:56 | Day surgery (SDC) | payer MEDICAID ==
[~2024-06-13] VITALS: Ht 162.6 cm; Wt 122.2 kg
[~2024-06-13 07:56] MED LIST changes: -ASCO500C17 PO; +CHOL500049 PO; -METF-1203 PO
[2024-06-13 08:21] VITALS: BP 155/84; PULSE 68; RESP 19
[2024-06-13] MEDS ORDERED: MIDAZolam 1 MG/ML 5ML VIAL ONE (09:32)
[2024-06-13] MEDS ORDERED: fentaNYL/PF 50MCG/1 ML 2ML syringe ONE (09:32)
[2024-06-13] MEDS ORDERED: propofol inj 20 ML IV ONE (09:33)
[2024-06-13] MEDS ORDERED: LIDOcaine 2% (20mg/ml) 5ml vial ONE (09:33)
[2024-06-13] MEDS ORDERED: simethicone 40mg/0.6ml oral drops 30ml ONE (09:35)
[2024-06-13 09:59] VITALS: BP 137/83; PULSE 71; RESP 18; O2SAT 100
[2024-06-13 10:10] VITALS: BP 144/84; PULSE 66; RESP 19; O2SAT 100
[2024-06-13 10:20] VITALS: BP 145/84; PULSE 61; RESP 16; O2SAT 97
[2024-06-13 10:30] VITALS: BP 161/84; PULSE 58; RESP 17; O2SAT 98
== END 2024-06-13 10:37 | disposition home or self-care (01) ==
LOC: GI LAB 07:56
PROVIDERS: ATTEND Internal Medicine Gastroenterology
DX: Z12.11 Encounter for screening for malignant neoplasm of colon (principal); D12.3 Benign neoplasm of transverse colon; K57.30 Diverticulosis of large intestine without perforation or abscess without bleeding; I10 Essential (primary) hypertension; E11.9 Type 2 diabetes mellitus without complications; E66.9 Obesity, unspecified; J45.909 Unspecified asthma, uncomplicated; G47.30 Sleep apnea, unspecified; Z86.010 Personal history of colon polyps; Z68.42 Body mass index [BMI] 45.0-49.9, adult
CPT/HCPCS: 45385; J2250; J2704; J3010; J3490; J7030; Z7512; A4620; C1889

== ENCOUNTER 2024-06-28 21:19 | Emergency (ER) | payer MEDICAID ==
[~2024-06-28] VITALS: Ht 162.6 cm; Wt 122.6 kg
[2024-06-28] MEDS: famotidine 20mg tablet PO ONE (22:05)
[2024-06-28] MEDS: diphenhydrAMINE 25mg capsule PO ONE (22:05)
[2024-06-28] MEDS ORDERED: HYDR-3717 PO (22:08)
[2024-06-28] MEDS ORDERED: TRIA15CR61 TOP (22:08)
[2024-06-28] MEDS: dexamethasone sod phosphate 10mg/ml inj IM STA (22:08)
[2024-06-28] MEDS: ondansetron 4mg rapidly disintigrating tab PO ONE (22:11)
[2024-06-28 22:15] VITALS: BP 167/96; PULSE 81; RESP 16; TEMP 97.8; O2SAT 98
== END 2024-06-28 22:16 | disposition home or self-care (01) ==
LOC: ER 21:19
DX: T78.49XA Other allergy, initial encounter (principal); E11.9 Type 2 diabetes mellitus without complications; G89.29 Other chronic pain; Z79.899 Other long term (current) drug therapy; X58.XXXA Exposure to other specified factors, initial encounter
CPT/HCPCS: 96372; 99284; J1100; Q0163

== ENCOUNTER 2024-12-28 21:55 | Emergency (ER) | payer MEDICAID ==
[~2024-12-28] VITALS: Ht 162.6 cm; Wt 120.5 kg
[~2024-12-28 21:55] MED LIST changes: +GABA-1405 PO; -GABA600T13 PO
[2024-12-28] MEDS ORDERED: iohexol 350MG/ML 100ml bottle IV ONE (22:24)
[2024-12-28 23:17] LABS: BASOPHILS % (AUTO) 0.9 % (0-1); EOSINOPHILS # (AUTO) 0.1 X10'3 (0-0.9); EOSINOPHILS % (AUTO) 1.5 % (0-6); HEMATOCRIT 38.5 % (35.0-45.0); HEMOGLOBIN 12.9 g/dl (12.0-16.0); LYMPHOCYTES # (AUTO) 1.6 X10'3 (1.1-4.8); LYMPHOCYTES % (AUTO) 30.7 % (21-51); MEAN CORPUSCULAR HEMOGLOBIN 28.3 PG (27.0-31.0); MEAN CORPUSCULAR HGB CONC 33.4 g/dL (33.0-36.5); MEAN CORPUSCULAR VOLUME 84.7 FL (78-98); MEAN PLATELET VOLUME 7.2 FL (7.4-10.4); MONOCYTES # (AUTO) 0.5 X10'3 (0-0.9); MONOCYTES % (AUTO) 9.4 % (2-12); NEUTROPHILS # (AUTO) 2.9 X10'3 (1.8-7.7); NEUTROPHILS % (AUTO) 57.5 % (42-75); PLATELET COUNT 316 X10'3 (140-440); RED BLOOD COUNT 4.54 X10'6 (4.20-5.60); RED CELL DISTRIBUTION WIDTH 14.4 % (11.5-14.5); WHITE BLOOD COUNT 5.1 X10'3 (4.5-11.0)
[2024-12-28 23:33] LABS: D-DIMER 1.87 MG/L FEU (0-0.50)
[2024-12-28 23:40] LABS: ALANINE AMINOTRANSFERASE 18 U/L (12-78); ALKALINE PHOSPHATASE 73 IU/L (46-116); ANION GAP 8 (8-16); ASPARTATE AMINO TRANSFERASE 20 U/L (10-37); BILIRUBIN,TOTAL 0.5 MG/DL (0.1-1.0); BLOOD UREA NITROGEN 14 MG/DL (7-18); BUN/CREATININE RATIO 18.2 (10.0-20.0); CALCIUM 9.2 MG/DL (8.5-10.1); CHLORIDE 106 MMOL/L (99-107); CREATININE 0.77 MG/DL (0.40-0.90); GLUCOSE 103 MG/DL (70-104); MAGNESIUM 1.8 MG/DL (1.5-2.4); POTASSIUM 3.9 MMOL/L (3.5-5.1); SODIUM 141 MMOL/L (135-145); TOTAL CARBON DIOXIDE 26.8 MMOL/L (24-32); TOTAL PROTEIN 7.9 G/DL (6.4-8.2); eCRCL 72 ML/MIN; eGFR 78 ML/MIN
[2024-12-29 01:45] VITALS: BP 102/65; PULSE 72; RESP 16; TEMP 97.8; O2SAT 97
== END 2024-12-29 01:57 | disposition home or self-care (01) ==
LOC: ER 21:56
DX: R07.89 Other chest pain (principal); R06.02 Shortness of breath; E11.9 Type 2 diabetes mellitus without complications; G89.29 Other chronic pain; Z79.899 Other long term (current) drug therapy
CPT/HCPCS: 36415; 71275; 80053; 83735; 84484; 85025; 85379; 93005; 99285; Q9967